=== PATIENT | female | born 1955 | race Hispanic/Latino ===

== ENCOUNTER 2018-04-16 09:42 | Outpatient (CLI) | payer SELFPAY ==
--- NOTE | 2018-04-18 11:28 | Mammography Report ---
BILATERAL DIGITAL SCREENING MAMMOGRAM WITH CAD: 04/16/18 09:42:00 CLINICAL: Routine screening. COMPARISON: FINDINGS: The breasts are heterogeneously dense, which may obscure small masses. A group of left outer calcifications requires additional imaging.No mass or architectural distortion.The right breast is negative. IMPRESSION: Left calcifications requiring further workup. BI-RADS CATEGORY: 0 -- Additional Imaging Evaluation Required RECOMMENDATION: Recall for left ML and spot magnification CC and ML views. We will also attempt to obtain a comparison mammogram from [facility]. ACR BI-RADS MAMMOGRAPHIC CODES: 0 = Needs additional imaging evaluation; 1 = Negative; 2 = Benign; 3 = Probably benign; 4 = Suspicious; 5 = Malignant; 6 = Known biopsy-proven malignancy COMMENT: 1. Dense breast tissue, i.e., adenosis, fibrocystic changes, etc., may obscure an underlying neoplasm. 2. Approximately 10% of cancers are not detected with mammography. 3. A negative mammography report should not delay biopsy if a clinically suspicious mass is present. COMMENT: Patient follow-up letters are generated via our [employer] application.
== END 2018-04-16 09:43 | disposition home or self-care (01) ==
LOC: SPVWC 09:42
DX: Z12.31 Encounter for screening mammogram for malignant neoplasm of breast (principal)
CPT/HCPCS: 77067